=== PATIENT | male | born 1955 | race Caucasian/White ===

== ENCOUNTER 2017-01-29 10:33 | Observation (INO) | payer OTHER ==
[2017-01-29] MEDS ORDERED: SODIUM CHLORIDE 0.9% 1,000 ML IV ONE ×2 (11:05→12:05)
[2017-01-29] MEDS ORDERED: ACETAMINOPHEN 325 MG TABLET PO STA (11:27)
[2017-01-29] MEDS ORDERED: LIDOCAINE-EPINEPH-TETRACAINE 3 ML SYRINGE TOP STA (11:27)
--- NOTE | 2017-01-29 11:27 | ED Physician Documentation ---
History of Present Illness - Stated complaint Stated Complaint: SYNCOPE/GLF/FACE LAC - Chief complaint Chief Complaint: Neuro - Additonal information Additional information: hx from pt 61 male was at work felt warm and faint got out of his truck to ask for help but no one saw him collapsed and awoke on the ground with facial injuries denies fever cough NVD CP palp leg swelling had syncope a yr ago and as dx with pE, no longer on blood thinners, does not seem to have had a hypercoag workup so presumably still at risk Review of Systems Constitutional: denies: Fever, Chills Ears: denies: Drainage/discharge Nose: denies: Epistaxis Cardiac: denies: Chest pain / pressure, Palpitations Respiratory: denies: Dyspnea, Cough Musculoskeletal: reports: Neck pain Neurologic: reports: Syncope, Headache, Head injury. denies: Focal weakness, Numbness Endocrine: denies: Easy bruising / bleeding Immunocompromised: denies: Immunocompromised PD PAST MEDICAL HISTORY - Past Medical History Cardiovascular: Hypertension Other Past Medical History: Pulmonary embolus - Past Surgical History Past Surgical History: No - Present Medications Home Medications: Ambulatory Orders Medication Instructions Recorded Confirmed Levothyroxine [Synthroid] 200 mcg PO DAILY 05/17/15 01/29/17 Quinapril HCl [Accupril] 10 mg PO DAILY 05/17/15 01/29/17 - Allergies Allergies/Adverse Reactions: Allergies Allergy/AdvReac Type Severity Reaction Status Date / Time No Known Drug Allergies Allergy Verified 01/29/17 10:44 - Social History Does the pt smoke?: No Smoking Status: Never smoker Does the pt drink ETOH?: No Does the pt have substance abuse?: No PD ED PE NORMAL - Vitals Vital signs reviewed: Yes - General General: Alert and oriented X 3 - HEENT HEENT: PERRL, Other (FH and nasal lac) - Neck Neck: Other (R sided neck TTP) - Cardiac Cardiac: RRR - Respiratory Respiratory: No respiratory distress, Clear bilaterally - Abdomen Abdomen: Soft, Non tender - Derm Derm: Normal color - Extremities Extremities: No edema, No calf tenderness / cord - Neuro Neuro: Alert and oriented X 3, No motor deficit - Psych Psych: Normal mood Results - Vitals Vitals: Vital Signs - 24 hr 01/29/17 01/29/17 10:39 12:24 Temperature 36.3 C L Heart Rate 66 73 Respiratory 18 14 Rate Blood Pressure 184/87 H 157/87 H O2 Saturation 100 100 Oxygen O2 Source Room air - EKG (time done) 1051 Rate: Rate (enter#) (64) Rhythm: NSR [place]: Normal Intervals: Normal RI Ischemia: Normal ST segments - Labs Labs: Laboratory Tests 01/29/17 01/29/17 01/29/17 12:15 12:15 12:15 WBC 10.4 RBC 4.25 L Hgb 14.0 Hct 39.7 L MCV 93.6 MCH 33.0 H MCHC 35.3 RDW 13.2 Plt Count 220 MPV 8.0 Neut # 8.2 H Lymph # 1.3 L Owen # 0.8 Eos # 0.0 Baso # 0.1 Absolute Nucleated RBC 0.00 Nucleated RBCs 0.0 Sodium 137 Potassium 4.0 Chloride 103 Carbon Dioxide 26 Anion Gap 8.0 BUN 15 Creatinine 0.9 Estimated GFR (MDRD) 86 L Glucose 102 H Calcium 9.0 Total Bilirubin 0.6 AST 28 ALT 18 Alkaline Phosphatase 53 Troponin I < 0.04 Total Protein 8.0 Albumin 4.6 Globulin 3.4 Albumin/Globulin Ratio 1.4 Lipase 21 L - Rads (name of study) CTPA Radiology: See rad report (no pE, nodule, pt advised to have PMD compare to 2015 CT or get rpt CT in 12 m) Procedures - Laceration (location) face Length in cm: 4 (nasal 2 cm FH 2 cm) Wound type: Linear (forehead), Curved (nasal) Neurovascular status: Sensory intact, Motor intact Anesthesia: LET Wound Preparation: Irrigated copiously NS (tech), Wound explored, To the base. No: FB identified Skin layer closure: Dermabond Other: Patient tolerated well, Tetanus booster given Complexity: Simple PD MEDICAL DECISION MAKING - ED course ED course: syncope with HI CTH CS neg lacs repaired NSR in ER prior PE with syncope but no PE today will admit to obs for tele and echo etc Dr Hanna to ER to see pt Departure - Departure Disposition: ED Place in Observation
[2017-01-29] MEDS ORDERED: LIDOCAINE-EPINEPH-TETRACAINE 3 ML SYRINGE TOP ONE (12:04)
[2017-01-29] MEDS ORDERED: ACETAMINOPHEN 325 MG TABLET PO ONE (12:05)
--- NOTE | 2017-01-29 12:26 | CT Preliminary Report ---
Exam: CT Head W/O IMPRESSION: 1. No intracranial abnormality. 2. Possible right frontal scalp laceration. [facility] SITE ID: [id number]
--- NOTE | 2017-01-29 12:29 | CT Report ---
EXAM: CT HEAD EXAM DATE: 01/29/2017 11:55 AM. CLINICAL HISTORY: Fall HI. COMPARISON: None. TECHNIQUE: Multiaxial CT images were obtained from the foramen magnum to the vertex. IV contrast: Non e. Reformats: Coronal. In accordance with CT protocol optimization, one or more of the following dose reduction techniques w ere utilized for this exam: automated exposure control, adjustment of mA and/or KV based on patient s ize, or use of iterative reconstructive technique. FINDINGS: Parenchyma: No intraparenchymal hemorrhage. No evidence of mass, midline shift, or CT findings of inf arction. Ramsay-white differentiation is distinct. Extraaxial Spaces: Normal for age. No subdural or epidural collections identified. Ventricles: Normal in size and position. Sinuses: Imaged paranasal sinuses, orbits, and mastoids show no significant abnormality. Bones: No evidence of fracture or calvarial defect. Other: Focal skin irregularity suggests possible right frontal scalp laceration. IMPRESSION: 1. No intracranial abnormality. 2. Possible right frontal scalp laceration. [facility] Referring Provider Line: [phone] SITE ID: [id number]
--- NOTE | 2017-01-29 12:31 | CT Preliminary Report ---
Exam: CT Cervical Spine W/O IMPRESSION: 1. No acute abnormality. 2. Degenerative disk disease, as above. [facility] SITE ID: [id number]
[2017-01-29 12:34] LABS: BASOPHILS # (AUTO) 0.1 10^3/uL (0.0-0.1); BASOPHILS % (AUTO) 0.6 %; EOSINOPHILS % (AUTO) 0.3 %; HCT - HEMATOCRIT 39.7 % (42.0-52.0); LYMPHOCYTES # (AUTO) 1.3 10^3/uL (1.5-3.5); LYMPHOCYTES % (AUTO) 12.9 %; MEAN CORPUSCULAR HGB CONC 35.3 g/dL (32.0-36.0); MEAN CORPUSCULAR VOLUME 93.6 fL (80.0-94.0); MONOCYTES # (AUTO) 0.8 10^3/uL (0.0-1.0); MONOCYTES % (AUTO) 7.5 %; NEUTROPHILS # (AUTO) 8.2 10^3/uL (1.5-6.6); NEUTROPHILS % (AUTO) 78.7 %; RED BLOOD COUNT 4.25 10^6/uL (4.70-6.10); RED CELL DISTRIBUTION WIDTH 13.2 % (12.0-15.0); UNCORRECTED WHITE BLOOD COUNT 10.4 x10^3/uL; WHITE BLOOD COUNT 10.4 x10^3/uL (4.8-10.8)
--- NOTE | 2017-01-29 12:34 | CT Report ---
EXAM: CT CERVICAL SPINE WITHOUT CONTRAST DATE: 01/29/2017 12:14 PM HISTORY: Fall and head injury.. COMPARISONS: None. TECHNIQUE: Thin-section axial images were acquired of the cervical spine without contrast. Post-proce ssing: Coronal and sagittal reformats. Other: None. In accordance with CT protocol optimization, one or more of the following dose reduction techniques w ere utilized for this exam: automated exposure control, adjustment of mA and/or KV based on patient s ize, or use of iterative reconstructive technique. FINDINGS: Alignment: Normal. No scoliosis or spondylolisthesis. Bones: No fracture or bone lesion. Interspace Levels/Facets: Degenerative disk disease with disk space narrowing greatest at C4-C5 through C7-T1 and slightly less so at C3-C4 and T1-T2. Mild to moderate multilevel vertebral body spurring. There is only mild facet degenerative disease. No bony canal or neuroforaminal stenosis.. Musculature: Normal. No fatty atrophy. Other: The paravertebral and prevertebral soft tissues are normal. The lung apices are clear. IMPRESSION: 1. No acute abnormality. 2. Degenerative disk disease, as above. [facility] Referring Provider Line: [phone] SITE ID: [id number]
[2017-01-29 12:47] LABS: ALBUMIN/GLOBULIN RATIO 1.4 (1.0-2.2); BILIRUBIN,TOTAL 0.6 mg/dL (0.2-1.0); CREATININE 0.9 mg/dL (0.6-1.2)
[2017-01-29] MEDS ORDERED: TETANUS/DIPHTHERIA/PERTUSSIS 0.5 ML SYRINGE IM ONE ×2 (13:18→13:52)
[2017-01-29] MEDS ORDERED: IOPAMIDOL-300 100 ML VIAL IVP ONE (13:47)
[2017-01-29] MEDS ORDERED: SODIUM CHLORIDE FLUSH 0.9% 10 ML SYRINGE IVP PRN (14:17)
[2017-01-29] MEDS ORDERED: ONDANSETRON 4 MG/2 ML VIAL IVP PRN (14:17)
[2017-01-29] MEDS ORDERED: HYDROcod/ACETAM 5/325 MG TABLET PO PRN (14:17)
--- NOTE | 2017-01-29 14:17 | CT Report ---
EXAM: CT ANGIOGRAM CHEST EXAM DATE: 01/29/2017 01:50 PM. CLINICAL HISTORY: Syncope. History of syncope secondary to pulmonary embolus. No anticoagulants now. COMPARISON: None. TECHNIQUE: Routine helical imaging was performed through the chest in the pulmonary arterial phase. I V Contrast: 100 mL Isovue-300. Reconstructions: Coronal 3-D MIP reconstructions.Sagittal and coronal. In accordance with CT protocol optimization, one or more of the following dose reduction techniques w ere utilized for this exam: automated exposure control, adjustment of mA and/or KV based on patient s ize, or use of iterative reconstructive technique. FINDINGS: Pulmonary Arteries: Diagnostic quality: Adequate through the segmental arteries. No pulmonary embolus is seen. Lungs/Pleura: 3 mm subpleural nodule in the lateral right upper lobe (lung window image 34). No focal consolidation, pleural effusion, or pneumothorax. Mediastinum: Heart size is normal. No pericardial effusion. Mild atherosclerotic calcifications withi n the aorta. No aortic aneurysm or dissection. No adenopathy. Upper Abdomen: Cholelithiasis. 4.6 cm exophytic renal cyst arising from the right upper pole. Bones: Mild degenerative changes within the spine. No acute bony abnormality. IMPRESSION: 1. No pulmonary embolus or other acute process identified to explain syncope. 2. 3 mm subpleural nodule in the lateral right upper lobe. In a low-risk patient, no routine follow-u p imaging is needed per 2017 Fleischner Society guidelines. In a high-risk patient, 12 month follow-u p CT could be considered. 3. Cholelithiasis. [facility] Recommend follow-up of the described nodule(s) according to the following guidelines: Fleischner Society Recommendations 2017 RSNA 2017 Solid Nodules-Low Risk Patients: <6 mm (single or multiple) - No routine follow-up* 6-8 mm (single) -CT 6-12 at months, then consider CT at 18-24 months 6-8mm (multiple) -CT 3-6 at mo, then consider at CT 18-24 months >8 mm (single) -Consider CT, PET/CT, or tissue sampling at 3 months >8 mm (multiple) -CT 3-6 at mo, then consider CT at 18-24 months Solid Nodules-High Risk Patients: <6 mm (single or multiple) -Optional CT at 12 months* 6-8 mm (single) -CT at 6-12 months, then CT at 18-24 months 6-8mm (multiple) -CT at 3-6 months, then CT at 18-24 months >8 mm (single) -Consider CT, PET/CT, or tissue sampling at 3 months >8 mm (multiple) -CT at 3-6 months, then at 18-24 months *Nodules < 6mm do not require routine follow-up, but suspicious nodule morphology, upper lobe locatio n, or both may warrant 12 month follow-up Subsolid nodules: <6 mm (single, GG or part solid) -No routine follow-up >=6 mm (single GG) -CT at 6-12 months to confirm, then CT q2 years until 5 years >=6 mm (single part solid) -CT at 3-6 months to confirm, if unchanged and solid <6mm, annual CT for 5 years <6 mm (multiple GG or part solid) -CT at 3-6 months. If stable, consider CT at 2 and 4 years >=6 mm (multiple GG or part solid) -CT at 3-6 months. Subsequent management based on most suspicious nodule(s). Consider follow-up at 2 and 4 years for certain suspicious nodules <6mm. If solid component develo ps or growth, consider resection. Referring Provider Line: [phone] SITE ID: [id number]
[2017-01-29 16:17] LABS: THYROID STIMULATING HORMONE 2.32 uIU/mL (0.34-5.60)
[2017-01-29] MEDS: SODIUM CHLORIDE 0.9% 1,000 ML IV SCH (16:40)
--- NOTE | 2017-01-29 17:19 | HISTORY & PHYSICAL EXAMINATION ---
DATE OF ADMISSION: 01/29/2017 PRIMARY CARE PROVIDER: Elliot Swan. CHIEF COMPLAINT: Syncope and fall. IDENTIFYING INFORMATION: The patient is a 61-year-old male who is the primary source of history and a ppears cogent, consistent, thorough. There are only a few seconds where he is unable to give history and a witness of the event supplied information to him and his . The patient's additional informa tion is provided by the emergency department physician, Dr. Cy Peck, and also personal review of medical records and data collected during this visit. The patient's examination was also used in eval uation of this person and preparation of this document. HISTORY OF PRESENT ILLNESS: The patient said that he went out to a job site, was looking at plans. He felt normal except that he was tired, but he has been tired a lot lately because they have an elderl y dog who wakes up 2-3 times a night and his has a problem with her foot and not able to get up to help out. The patient got in his truck, was sitting and looking at plans when he felt off, could n ot describe it much better than that he just did not feel right and got a hot feeling, wanted to take his coat off, stepped out of the truck, he was feeling much worse. He saw a person he recognized and was going to call for help, had difficulty in recalling his name, when he did he called out "Gopi" ninoska nd then went to the ground. The person turned around, saw him go to the ground face first. The patien t remembers going towards the ground and even has a recollection of his glasses crunching. He got up shortly thereafter and had blood all over his face as he had done a face plant and then his friend he lped him get up. He did admit he was getting up slowly. The friend called his and she took him t o the emergency department here. The patient has had a problem with syncopal episodes in the past, he had 1 about 2 years ago and 2 we eks after he was seen here after a long trip to [place] and back, he was found to have a pulmonary emb olus. The patient had a couple of other episodes where he had the feeling he might pass out, but he l aid down in his truck and symptoms go away. REVIEW OF SYSTEMS: Negative except as noted above and the fact that he had a headache now. PAST MEDICAL HISTORY: Remarkable for hypertension, pulmonary embolus, hypothyroidism, status post abl ation of the thyroid, previously had Graves disease, did undergo the ablation. The patient had no marlena geries. ALLERGIES: NONE KNOWN. MEDICATIONS: 1. Levoxyl 125 mcg daily. 2. Quinapril 10 mg daily. The patient smoked a pack a day from age 11 to 27 and quit for 9 years and then smoked again until th e age of 37. The patient never has drank any alcohol. PERSONAL AND SOCIAL HISTORY: The patient was born in [place], [place], raised in the [facility], 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 FAMILY HISTORY: There is no diabetes in the family. His mother is still alive, has a pacemaker. His f ather had a cancer in his back that eventually went to his lungs. PHYSICAL EXAMINATION: CONSTITUTIONAL: A well-developed, well-nourished male who appears stated age. VITAL SIGNS: 36.3, 66, 18, 184/87, later 157/87, and O2 saturation 100% on room air. EYES: EOMs within normal limits. PERRL, nonicteric. ENT: TMs intact. Not well seen on the left. Canals are normal. MOUTH AND THROAT: Moist mucous membranes. No other pathology of the mouth or pharynx. NECK: Supple. Nontender. No lymphadenopathy, no thyromegaly, no bruits. No JVD. CHEST WALL: Nontender. Symmetric. HEART: Normal sinus rhythm. There is a 2/6 murmur left sternal border extends part way to the apex. T here are no rubs, clicks. LUNGS: Clear, good air movement in all quadrants. No wheezes, rales. ABDOMEN: Thick abdominal wall, soft, nontender, normal bowel sounds. No hepatosplenomegaly. RECTAL/GENITAL: Not done. EXTREMITIES: Without edema. Normal 1+ distal pulses bilaterally posterior tibial. The patient has no tenderness of the thighs, no edema. NEUROLOGICAL: Cognition intact. Cranial nerves intact. Motor intact. SKIN: No abnormal lesions or dermatitis noted. The patient does have a nasal laceration 2 cm and the forehead 2 cm which are closed with Dermabond. DIAGNOSTICS: White count 10.4, 14 and 39 hemoglobin and hematocrit. The patient's platelet count is 2 20. Sodium 137, potassium 4.0, chloride is 103, CO2 26, BUN 15, creatinine 0.9, glucose 102, calcium 9.7. Bilirubin normal, liver enzymes normal. Troponin less than 0.04. Albumin is 4.6, lipase is 21. The patient had a head CT which was negative. His EKG was negative. The patient's CT head and neck ar e negative. IMPRESSION: 1. Syncope, undetermined etiology. 2. Hypertension. 3. Hypothyroidism status post ablation for Graves. SUMMARY: This is a 61-year-old who was feeling uncomfortable, had a short syncopal episode with some abrasions and small lacerations to the face, recovered quickly and presents to emergency department. The patient is here for monitoring, echocardiogram and other tests as indicated. DISCUSSION/DECISION MAKIN. For the syncope. The differential includes a seizure which this by history nor his findings are no t consistent with that diagnosis. The patient also could have a vasovagal which cannot be proven, hyp oglycemia is also likely, no previous history, and could be an arrhythmia. The patient will be monito red with continuous tele while the patient is here. Have an echocardiogram to determine if the heart murmur is significant and then followup by Cardiology as an outpatient. HOSPITAL ISSUES: 1. CODE: HE IS FULL CODE. 2. Venous thromboembolism prophylaxis, which will be Lovenox subcutaneous 40 mg. 3. The patient's diet will be a regular diet. 4. His activity will be as tolerated. 5. Tubes and lines: He will just have peripheral IV. HOSPITAL STATUS: The patient will be observation, expect to leave after 1 midnight. The patient's [facility] of stay is estimated at 1 midnight. DISPOSITION: Expected to be back home. JOB #: [id number] EXT JOB #:[id number]
[2017-01-29] MEDS ORDERED: ACETAMINOPHEN 325 MG TABLET PO PRN (20:18)
[2017-01-29] MEDS ORDERED: LEVOTHYROXINE 125 MCG TABLET PO SCH (21:00)
[2017-01-29] MEDS ORDERED: LISINOPRIL 5 MG TABLET PO SCH (21:00)
[2017-01-29] MEDS: SODIUM CHLORIDE FLUSH 0.9% 10 ML SYRINGE IVP SCH (22:53)
[2017-01-30] MEDS: SODIUM CHLORIDE 0.9% 1,000 ML IV SCH (05:20)
[2017-01-30] MEDS: SODIUM CHLORIDE FLUSH 0.9% 10 ML SYRINGE IVP SCH (05:24)
[2017-01-30 06:22] LABS: ALBUMIN/GLOBULIN RATIO 1.3 (1.0-2.2); BILIRUBIN,TOTAL 0.8 mg/dL (0.2-1.0); CALCIUM 8.6 mg/dL (8.5-10.3); CREATININE 0.8 mg/dL (0.6-1.2); POTASSIUM 4.4 mmol/L (3.5-5.0)
[2017-01-30 08:13] VITALS: BP 137/81
[2017-01-30] MEDS ORDERED: POLYETHYLENE GLYCOL 3350 17 GM PACKET PO SCH (09:00)
[2017-01-30] MEDS ORDERED: ENOXAPARIN 40 MG/0.4 ML SYRINGE SUBQ SCH (09:00)
--- NOTE | 2017-01-30 14:56 | DISCHARGE SUMMARY ---
DATE OF ADMISSION: 01/29/2017 DATE OF DISCHARGE: 01/30/2017 TRANSFER SUMMARY PRIMARY CARE PHYSICIAN: Elliot Swan MD. SPECIAL PROCEDURES: 1. Echocardiogram findings are normal left ventricle sigmoid shaped septum with focal hypertrophy of the basal septum, overall function normal with EF of 55-60% , moderate right ventricular enlargement. Right ventricular function is normal. The patient's aortic valve trileaflet with mild sclerosis, no stenosis, mild to moderate aortic regurgitation. Mitral valve is normal, mild mitral regurgitation. 2. CTA of the chest, findings are no pulmonary embolus or other acute process is identified to explain syncope. A 3 mm subpleural nodule in lateral right upper lobe, low risk. No routine followup suggested. High risk patient [address] could be considered. He also has cholelithiasis. The patient had a head CT which showed no intracranial bleeding. Cervical C- spine had no significant acute injury. HOSPITAL COURSE AND MANAGEMENT: The initial presentation, hospital emergency evaluation, and hospitalist plan are well described in the history and physical , see copy of same. SUMMARY: This is a 61-year-old who was feeling uncomfortable, had short syncopal episode with some abrasions and small lacerations of the face as a result of a fall, recovered quickly, and presents to emergency department. The here for monitoring, echocardiogram and other tests as indicated. The patient during the night had telemetry, which showed both of which above 1 and 2. The patient's PCP was called, was not available. The airline radio operator on-call was contacted instead of Dr. Peter, Dr. Silva, who reviewed the tele strips and agreed the patient needs to be transferred to [facility]. The patient was transferred without incident. ALLERGIES: NONE KNOWN. MEDICATIONS AT HOME: 1. Levoxyl 125 mcg daily. 2. Quinapril 10 mg daily. The patient was examined on day of discharge and found in satisfactory condition for transfer. JOB #: [id number] EXT JOB #:[id number] [facility]
== END 2017-01-30 10:56 | disposition short-term general hospital (02) ==
LOC: ED 10:33 → MS 14:17
PROVIDERS: ADMIT Internal Medicine; ATTEND Internal Medicine
DX: I44.1 Atrioventricular block, second degree (principal); R55 Syncope and collapse; S01.21XA Laceration without foreign body of nose, initial encounter; S01.81XA Laceration without foreign body of other part of head, initial encounter; E89.0 Postprocedural hypothyroidism; W18.39XA Other fall on same level, initial encounter; Y93.89 Activity, other specified; Y92.69 Other specified industrial and construction area as the place of occurrence of the external cause; Y99.0 Civilian activity done for income or pay; Z86.711 Personal history of pulmonary embolism; I10 Essential (primary) hypertension; Z87.891 Personal history of nicotine dependence
CPT/HCPCS: 12013; 36415; 70450; 71275; 72125; 80053; 83690; 84439; 84443; 84484; 85025; 90471; 90715; 93005; 93010; 93306; 96360; 96361; 96372; 99217; 99218; 99284; A9270; J1650; Q9967

== ENCOUNTER 2017-01-30 10:51 | Outpatient (CLI) | payer OTHER | END 2017-01-30 10:52 | disposition short-term general hospital (02) | DX: R55 Syncope and collapse (principal); I49.9 Cardiac arrhythmia, unspecified | CPT/HCPCS: A0425; A0427 ==

== ENCOUNTER 2017-05-27 08:00 | Outpatient (CLI) | payer OTHER ==
[2017-05-28 12:02] LABS: TEST RESULT REPORT (())
== END 2017-05-27 08:01 | disposition home or self-care (01) ==
LOC: LAB.F 08:00
PROVIDERS: ATTEND Surgery
DX: A09 Infectious gastroenteritis and colitis, unspecified (principal)
CPT/HCPCS: 81599; 87075; 87493

== ENCOUNTER 2019-07-14 06:27 | Emergency (ER) | payer OTHER ==
[2019-07-14 06:34] VITALS: BP 186/90
--- NOTE | 2019-07-14 06:52 | ED Physician Documentation ---
History of Present Illness - Stated complaint Stated Complaint: DIZZY - Chief complaint Chief Complaint: General - History obtained from History obtained from: Patient - History of Present Illness Timing: How many weeks ago - Additonal information Additional information: This is a 64-year-old man who presents with complaints that he got out of bed this morning and just felt off he was little bit not dizzy but feeling like the room was moving a little bit he actually saw his primary care provider last week at the [facility] they flushed out his ears and that seemed to help for short period of time, But he continues to experience this jittery sensation and dizziness. He says he has a pacemaker and is in A. fib. But a month ago he was put on Xarelto and took it for about 3 weeks he thought it might be contributing to his symptoms so he quit taking it. He had an interrogation done on his pacer in the last time he had A. fib that was in March of this year and it was for 4 seconds. He also discontinued his blood pressure medications but then restarted them because his blood pressure started going up. Patient has Graves' disease and has been on a thyroid replacement for many years. Apparently the pharmacy changed formulation and he is getting a different brand and he wondered if that might be contributing to his symptoms. He does occasionally feel like his heart is racing. Denies shortness of breath. Has had no nausea or vomiting. No neck pain. He complains of tingling in his hands bilaterally. He had an earache until his ears were irrigated. He wears glasses and felt like his vision was kind of tunneling in 1 day while he was driving. 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 Review of Systems Constitutional: denies: Fever Eyes: denies: Loss of vision Ears: reports: Ear pain, Tinnitus/ringing Nose: denies: Congestion Throat: denies: Sore throat Cardiac: reports: Palpitations. denies: Chest pain / pressure Respiratory: denies: Dyspnea, Cough GI: denies: Nausea, Vomiting : denies: Dysuria Skin: denies: Rash Neurologic: denies: Generalized weakness, Numbness, Syncope, Head injury Endocrine: reports: Other (History of Graves' disease) Immunocompromised: denies: Immunocompromised PD PAST MEDICAL HISTORY - Past Medical History Cardiovascular: Hypertension Endocrine/Autoimmune: HyPERthyroidism - Past Surgical History Past Surgical History: No - Present Medications Home Medications: Ambulatory Orders Medication Instructions Recorded Confirmed RX: Quinapril HCl [Accupril] 10 mg PO DAILY 05/17/15 01/29/17 RX: Levothyroxine [Synthroid] 125 mcg PO DAILY 01/29/17 01/29/17 LORazepam [Ativan] 0.5 mg PO Q6H #10 tablet 07/14/19 - Allergies Allergies/Adverse Reactions: Allergies Allergy/AdvReac Type Severity Reaction Status Date / Time No Known Drug Allergies Allergy Verified 01/29/17 10:44 - Social History Does the pt smoke?: No Smoking Status: Former smoker Does the pt drink ETOH?: No Does the pt have substance abuse?: No PD ED PE NORMAL - Vitals Vital signs reviewed: Yes - General General: Alert and oriented X 3, No acute distress, Well developed/nourished, Other (He seems anxious. He even holds his hands out to demonstrate how he is trembling) - HEENT HEENT: Atraumatic, PERRL, EOMI, Moist mucous membranes - Neck Neck: Supple, no meningeal sign, No adenopathy, Thyroid normal - Cardiac Cardiac: RRR, No gallop, No rub, Strong equal pulses, Other (3/6 systolic murmur heard at the apex but loudest over the left upper sternal border) - Respiratory Respiratory: No respiratory distress, Clear bilaterally - Abdomen Abdomen: Normal bowel sounds, Soft, Non tender, Non distended, No organomegaly - Derm Derm: Normal color, Warm and dry, No rash - Extremities Extremities: No deformity, Normal ROM s pain, No edema - Neuro Neuro: Alert and oriented X 3, 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 He cannot specify exactly what he is concerned about initially said it was about Graves' disease but he just had a thyroid tested, then he said he was concerned about his heart but he just had the pacer checked and he is not experienced any chest pain. He was told by the timing inspector that he did not need a stress test if he was not having pain. He a lso mentioned concern about some rectal bleeding however he just had a normal blood count and this is been an ongoing problem for several years intermittently. He had a colonoscopy 6 years ago. He is also complaining of his right ear plugging more than it ever has in the past and more than the left ear. I think he has some significant anxiety although I am not sure of the underlying cause. We talked about a prescription for just a few benzodiazepines as he has an appointment for follow-up with his primary care physician on Friday and can discuss with her his continued concerns and see if there is any other testing that needs to be done. I did asked the patient several times here today if there was any testing that would reassure him about what his biggest concern is and he could not even delineate what his concern was other than something was not right. He kept circling between the complaint of his ear being plugged, the rectal bleeding, soreness in his antecubital fossa related to prior IV stick, concerns about his thyroid medication, concerns about a blockage in his blood vessels in his heart. Departure - Departure Disposition: 01 Home, Self Care Clinical Impression: Anxiety Condition: Good Instructions: ED Carpal Tunnel Follow-Up: Elliot Swan MD [Primary Care Provider] - Prescriptions: LORazepam [Ativan] 0.5 mg PO Q6H #10 tablet Comments: Do not drive or operate machinery if you take the Ativan. Return to the emergency department if you have chest pain, shortness of breath, you pass out or other problems arise. I would discuss with your doctor about being tested for carpal tunnel syndrome and follow-up with them as scheduled this coming Friday to address your feelings of anxiousness. Discharge Date/Time: 07/14/19 07:26
== END 2019-07-14 07:26 | disposition home or self-care (01) ==
LOC: ED 06:27
DX: F41.9 Anxiety disorder, unspecified (principal); I10 Essential (primary) hypertension; E05.00 Thyrotoxicosis with diffuse goiter without thyrotoxic crisis or storm; Z95.0 Presence of cardiac pacemaker; R01.1 Cardiac murmur, unspecified; K62.5 Hemorrhage of anus and rectum; H92.01 Otalgia, right ear; Z87.891 Personal history of nicotine dependence
CPT/HCPCS: 93005; 99283; 99284